=== PATIENT | male | born 1950 | race Caucasian/White ===

== ENCOUNTER 2021-08-17 07:53 | Day surgery (SDC) | payer OTHER ==
[~2021-08-17] VITALS: Ht 182.9 cm; Wt 73.9 kg
[~2021-08-17 07:53] MED LIST: CEFAZOLIN SOD 2 GM in D5W 50 ML IV ONE
[2021-08-17] MEDS ORDERED: HYDROmorphone 1 MG/ML INJ. CARTRIDGE IVP PRN ×2 (11:30)
[2021-08-17] MEDS ORDERED: ONDANSETRON HCL 4 MG/2 ML VIAL IVP PRN (11:30)
[2021-08-17] MEDS ORDERED: KETOROLAC TROMETHAMINE 30 MG VIAL IVP PRN (11:30)
[2021-08-17] MEDS ORDERED: IBUPROFEN 600 MG TABLET PO ONE (12:00)
[2021-08-17] MEDS ORDERED: fentaNYL CITRATE/PF 100 MCG/2 ML AMP ONE (12:55)
[2021-08-17] MEDS ORDERED: SUGAMMADEX SODIUM 200 MG/2 ML VIAL IV ONE (12:55)
[2021-08-17] MEDS ORDERED: NS IRRIG SOLN 1000 ML IR ONE (12:55)
[2021-08-17] MEDS ORDERED: ROCURONIUM BROMIDE 10 MG/ML (ZEMURON) ONE (12:55)
[2021-08-17] MEDS ORDERED: PROPOFOL 200MG/ 20ML VIAL (DIPRIVAN) IV ONE (12:55)
[2021-08-17] MEDS ORDERED: BUPIVACAINE /PF 0.25% 30 ML VIAL INJ ONE (12:55)
[2021-08-17] MEDS ORDERED: SUCCINYLCHOLINE CHLORIDE 20 MG/ML(QUELICIN) ONE (12:55)
[2021-08-17] MEDS ORDERED: SEVOFLURANE 15 MIN GAS INH ONE (12:55)
[2021-08-17] MEDS ORDERED: ONDANSETRON HCL 4 MG/2 ML VIAL ONE (12:55)
[2021-08-17] MEDS ORDERED: LR 1,000 ML IV.SOLN IV ONE (12:55)
[2021-08-17] MEDS ORDERED: KETOROLAC TROMETHAMINE 30 MG VIAL ONE (13:30)
[2021-08-17 15:43] VITALS: BP_SYST 129
== END 2021-08-17 15:35 | disposition home or self-care (01) ==
LOC: SDS 07:53 → SMU 07:54 → SDS 15:35
PROVIDERS: ATTEND Surgery
DX: K40.21 Bilateral inguinal hernia, without obstruction or gangrene, recurrent (principal); K42.9 Umbilical hernia without obstruction or gangrene; R10.2 Pelvic and perineal pain; I12.9 Hypertensive chronic kidney disease with stage 1 through stage 4 chronic kidney disease, or unspecified chronic kidney disease; N18.30 Chronic kidney disease, stage 3 unspecified; Z20.822 Contact with and (suspected) exposure to COVID-19; Z79.899 Other long term (current) drug therapy
CPT/HCPCS: 36415; 49651; 49585; 88302; U0003; C1781; J3490 ×2; J0690; J1885; J2405; J2704; J0330; J3010; J7060; J7120; C1727; S2900